=== PATIENT | female | born 1975 | race Caucasian/White ===

== ENCOUNTER → 2020-08-10 | Outpatient (CLI) | payer BC ==
[2020-08-10 12:26] LABS: HEMOGLOBIN 15.4 gm/dl (12.3-15.3); RED BLOOD COUNT 5.11 M/UL (4.00-5.10); WHITE BLOOD COUNT 11.9 K/UL (4.5-11.0)
[2020-08-10 12:48] LABS: BUN/CREATININE RATIO 13 (0-10)
[2020-08-11 08:14] LABS: FSH, SERUM 6.5 mIU/mL (.)
[2020-08-12 11:15] LABS: CHOLESTEROL, TOTAL 189 mg/dL (100-199); HDL SIZE 8.5 nm (>=9.2); HDL-C 31 mg/dL (>39); HDL-P (TOTAL) 28.9 umol/L (>=30.5); LARGE HDL-P 2.1 umol/L (>=4.8); LARGE VLDL-P 16.7 nmol/L (<=2.7); LDL SIZE 20.3 nm (>20.5); LDL SIZE 20.3 nm (>=20.8); LDL-C 109 mg/dL (0-99); LDL-P 1493 nmol/L (<1000); LP-IR SCORE 96 (<=45); SMALL LDL-P 864 nmol/L (<=527); TRIGLYCERIDES 283 mg/dL (0-149); VLDL SIZE 63.8 nm (<=46.6)
== END ==
LOC: LAB 11:00
PROVIDERS: Emergency Medicine
DX: R00.2 Palpitations (principal); R00.0 Tachycardia, unspecified; R07.9 Chest pain, unspecified; R53.83 Other fatigue; R23.2 Flushing; L65.9 Nonscarring hair loss, unspecified
CPT/HCPCS: 36415; 71046; 80053; 80061; 83001; 83002; 83704; 84443; 85025; 93005

== ENCOUNTER → 2020-10-02 | Outpatient (CLI) | payer BC | LOC: ECHO 09:03 | DX: R00.2 Palpitations (principal); R07.9 Chest pain, unspecified; I08.1 Rheumatic disorders of both mitral and tricuspid valves | CPT/HCPCS: ECHO; 93306 ==

== ENCOUNTER 2020-11-11 09:47 | Emergency (ER) | payer BC | END 2020-11-11 10:03 | disposition home or self-care (01) | LOC: ER1 09:47 | DX: R06.02 Shortness of breath (principal); R05 Cough; I10 Essential (primary) hypertension; Z90.49 Acquired absence of other specified parts of digestive tract | CPT/HCPCS: 99284 ==

== ENCOUNTER → 2021-03-10 | Emergency (ER) | payer BC | END | disposition left against medical advice (07) | LOC: ER1 14:38 | DX: Z53.21 Procedure and treatment not carried out due to patient leaving prior to being seen by health care provider (principal) ==